=== PATIENT | female | born 1930 | race Caucasian/White ===

== ENCOUNTER → 2016-06-14 | Outpatient (REF) ==
[~2016-06-14] MED LIST: ASPIRIN 81M81 MG/TA2 PO; ASPIRIN E.C. 8181 MG PO; BETAPACE 120MG120 MG PO; BETAPACE 80MG80 MG PO; BRILINTA90 MG PO; CARDI-OMEGA1000 MG PO; CO ENZYME Q-1050 MG PO; COENZYME Q-10100 M1 PO; COREG 6.256.25 MG/TA PO; COREG CR40 MG PO; COZAAR 25MG25 MG/TAB PO; EFFIENT10 MG PO; HCTZ 25MG25 MG PO; IMDUR 30MG30 MG/TAB PO; IMDUR 60MG60 MG/TAB PO; K-DUR20 MEQ PO; KLOR-CON M2020 MEQ PO; LORAZEPAM0.5 MG PO; MAGNESIUM250 M1 PO; MULTAQ400 MG PO; MULTIPLE VITAMI1 TA5 PO; NITROQUICK0.4 MG SL; NITROSTAT0.4 MG/TAB SL; OCUVITE1 TA1 PO; PLAVIX 75MG TAB75 MG PO; POTASSIUM20 MEQ PO; PROTONIX 40MG T40 MG PO; REMERON 15M15 MG/TA1 PO; SYNTHROID0.075 MG PO; SYNTHROID0.075 MG/T PO; THERAPEUTIC VIT1 CAP PO; VITAMIN D32000 I1 PO; XARELTO10 MG PO; ZANTAC 150150 MG; ZANTAC 150MG T150 MG PO
== END ==
LOC: ZLAB.WCH 10:29
DX: Z01.89 Encounter for other specified special examinations (principal)

== ENCOUNTER → 2017-01-03 | Outpatient (CLI) | payer MEDICARE, OTHER | LOC: COL.PUL 12:53 | DX: I71.2 Thoracic aortic aneurysm, without rupture (principal); I51.7 Cardiomegaly; I70.0 Atherosclerosis of aorta; J98.11 Atelectasis; R91.8 Other nonspecific abnormal finding of lung field; K44.9 Diaphragmatic hernia without obstruction or gangrene; Z87.891 Personal history of nicotine dependence; Z95.0 Presence of cardiac pacemaker; Z90.49 Acquired absence of other specified parts of digestive tract; Z96.0 Presence of urogenital implants | CPT/HCPCS: Q9967 ==

== ENCOUNTER → 2017-08-07 | Outpatient (REF) | LOC: ZLAB.WCH 08:31 | DX: Z01.89 Encounter for other specified special examinations (principal) ==

== ENCOUNTER → 2017-08-12 | Outpatient (REF) | LOC: ZLAB.WCH 18:14 | DX: Z01.89 Encounter for other specified special examinations (principal) ==

== ENCOUNTER → 2017-09-01 | Outpatient (REF) | LOC: ZLAB.WCH 17:53 | DX: Z01.89 Encounter for other specified special examinations (principal) ==

== ENCOUNTER → 2018-04-07 | Outpatient (CLI) | payer MEDICARE, OTHER ==
[~2018-04-07] MED LIST changes: +ALMACONE 360 M360 ML PO; +ASPERCREME85G TP; +BENADRYL EXTRA STR2% TP; +BETAPACE AF80 MG/TA1 PO; +BETAPACE160 MG PO; +CARDIZEM120 MG PO; +CLARITIN 1010 MG/TAB PO; +COLACE 100100 MG/CAP PO; +COUMADIN 3MG3 MG/TAB PO; +COUMADIN 5MG5 MG/TAB PO; +COUMADIN 6MG6 MG/TAB PO; +COUMADIN 77.5 MG/TAB PO; +COZAAR 50MG50 MG/TAB PO; +DULCOLAX S10 MG/SUPP RC; +GOOD NEIGH1200 MG/15 PO; +IMODIUM 2MG CAPS2 MG PO; +KLOR-CON M1010 MEQ PO; +MELAT3MGTAB PO; +MIRALAX PA17 GM/Dose PO; +REFRESH TEARS 330 ML OU; +STIOLTO RESPIMAT4 GM IH; +TESSALON P100 MG/CAP PO; +TUMS EXTRA STR750 MG PO; +TYLENOL 500MG500 MG PO; +ZOFRAN ODT4 MG PO
== END ==
LOC: ZCOL.LAB 11:48
DX: R07.9 Chest pain, unspecified (principal)